=== PATIENT | male | born 1980 | race Caucasian/White ===

== ENCOUNTER 2019-10-05 16:47 | Inpatient (IN) | payer BC, OTHER ==
[2019-10-05 17:21] LABS: Absolute Lymphocytes (CBC) 2.2 K/uL (0.7-4.9); Basophils % 0.2 % (0-1.3); Lymphocytes % 17.3 % (15.3-44.8); MPV 8.3 fL (7.6-11.3)
[2019-10-05 17:26] LABS: Protime INR 1.03
[2019-10-05 17:42] LABS: ALT/SGPT 58 U/L (12-78); AST/SGOT 32 U/L (15-37); Albumin 3.9 g/dL (3.4-5.0); Alkaline Phosphatase 80 U/L (45-117); BUN Blood Urea Nitrogen 20 mg/dL (7-18); Bicarbonate 23 mmol/L (21-32); Bilirubin Direct < 0.1 mg/dL (0-0.2); Bilirubin Total 0.4 mg/dL (0.2-1.0); Glucose Level 123 mg/dL (74-106); Potassium 3.9 mmol/L (3.5-5.1); Protein, Total 7.6 g/dL (6.4-8.2); Sodium Level 141 mmol/L (136-145)
[2019-10-05] MEDS ORDERED: NA CHLORIDE 0.9% 1,000 ML ONE (17:42)
[2019-10-05 17:53] LABS: Urine Blood NEGATIVE (NEG); Urine Glucose NEGATIVE (NEG); Urine Protein 3+ (NEG); Urine pH 5.5 (5.0-7.0)
[2019-10-05 18:00] LABS: Barbiturates NEGATIVE (NEGATIVE); Benzodiazepines POSITIVE (NEGATIVE); Cocaine NEGATIVE (NEGATIVE); METHAMPHETAM NEGATIVE (NEGATIVE); Methadone NEGATIVE (NEGATIVE); Opiates NEGATIVE (NEGATIVE); Phencyclidine NEGATIVE (NEGATIVE); THC Cannibis NEGATIVE (NEGATIVE)
--- NOTE | 2019-10-05 18:28 | ER ---
Nurse's Notes [facility] Name: Jose Luis Alvarenga Age: 39 yrs Sex: Male : 1980 Arrival Date: 10/05/2019 Time: 16:50 Bed 3 Private MD: Diagnosis: Suicide attempt;Intentional overdose;Altered mental status, unspecified Presentation: 10/05 16:50 Presenting complaint: EMS states: Found by PD in car on side of road, slumped over steering wheel, covered in vomit, urine, and feces, prescription pill bottles in front seat: Seroquel 100 mg (disp 60), Zoloft 100 mg (disp 60),, Propanolol ER 120 (disp 30), venlafaxine ER 75 mg (disp 30). Prescriptions filled on 09/12/19. Narcan 0.5 mg administered to 20g LAC. Transition of care: patient was not received from another setting of care. Onset of symptoms was October 05, 2019. Risk Assessment: Do you want to hurt yourself or someone else? Patient reports desire/thoughts of hurting themselves or someone else. Provider notified. Care prior to arrival: IV initiated. 20 GA, in the left antecubital area. 16:50 Method Of Arrival: EMS: [facility] 16:50 Acuity: GILDA 1 hb 17:00 Initial Sepsis Screen: Does the patient meet any 2 criteria? No. Patient's initial em sepsis screen is negative. Does the patient have a suspected source of infection? No. Patient's initial sepsis screen is negative. Historical: - Allergies: 17:00 Neosporin ([id number]); hb - Home Meds: 18:26 propranolol 120 mg Oral Cs24 1 cap once daily [Active]; venlafaxine 75 mg oral tab 1 em tab [Active]; sertraline 100 mg oral tab 1 tab once daily [Active]; quetiapine 100 mg oral tab 2 tabs [Active]; - PMHx: 18:26 Broken Neck; Depression; Anxiety; em - Immunization history:: Adult Immunizations unknown. - Social history:: Smoking status: unknown. - Ebola Screening: : Unable to complete screening because. Screenin:00 Abuse screen: unable to obtain. Nutritional screening: No deficits noted. Tuberculosis em screening: No symptoms or risk factors identified. Fall Risk None identified. Assessment: 17:00 General: Appears in no apparent distress. comfortable, Behavior is drowsy, Smells of em feces and urine . Reports reports he "wanted to end my life" when he took the pills. Pain: Denies pain. Neuro: Cardiovascular: Capillary refill < 3 seconds Patient's skin is warm and dry. Rhythm is sinus rhythm. Respiratory: Airway is patent Respiratory effort is even, unlabored, Respiratory pattern is regular, symmetrical. GI: Abdomen is flat, Last BM was October 05, 2019. vomit noted on patient and pt soiled, cleaned up, applied new gown and applied new brief. Derm: Skin is intact, is healthy with good turgor, Skin is pink, warm \\T\\ dry. Musculoskeletal: Capillary refill < 3 seconds, Range of motion: intact in all extremities. 17:10 Reassessment: Pina \\Cruz\\ Poison Control - [place] recommends: monitor for hypotension, hb bradycardia, serotonin syndrome, tox workup, EKG, need for intubation high, ICU admit. Symptom management with atropine, vasopressors, glucagon. Call for power bender operator consult if high dose insulin therapy needed. Case #[id number]. 17:55 Reassessment: Patient appears in no apparent distress at this time. at bedside, em states they got into an argument today because he was going to work in [place] and has 3 young boys, was admitted to [facility] for treatment in April 2019, pt belongings (soiled jeans, shirt, socks, shoes) given to , pt had $172 in jeans, given to . 18:26 Reassessment: Hospitalist at bedside discussing POC. em 19:10 Reassessment: Patient appears in no apparent distress at this time. Patient and/or jb4 family updated on plan of care and expected duration. Pain level reassessed. Patient is alert, oriented x 3, equal unlabored respirations, skin warm/dry/pink. 19:28 Reassessment: Senior Contract Specialist to the bedside. jb4 19:37 Reassessment: Warm blanket given for temp of 96.8. jb4 19:42 Reassessment: report called to PARVIN Burnett. jb4 Vital Signs: 16:58 BP 93 / 73; Pulse 71; Resp 12; Temp 97; Pulse Ox 96% on R/A; Weight 81.65 kg; Height 6 hb ft. (182.88 cm); Pain 0/10; 17:48 BP 102 / 83; Pulse 71; Resp 18 S; Pulse Ox 96% on R/A; em 18:15 BP 109 / 82; Pulse 70; Resp 17 S; Pulse Ox 99% on R/A; em 18:30 BP 115 / 88; Pulse 71; Resp 15 S; Pulse Ox 98% on R/A; em 19:30 BP 107 / 81; Pulse 75; Resp 26; Temp 96.8(A); Pulse Ox 98% ; jb4 16:58 Body Mass Index 24.41 (81.65 kg, 182.88 cm) hb ED Course: 16:50 Patient arrived in ED. hb 16:58 Triage completed. hb 16:58 Arm band placed on. hb 16:59 Noah Mason, PARVIN is Primary Nurse. em 17:00 Curtis Islas FNP-C is PHCP. la1 17:00 Denilson Hickman MD is Attending Physician. la1 17:00 Patient has correct armband on for positive identification. Placed in gown. Bed in low em position. Call light in reach. Adult w/ patient. produce department manager on. Pulse ox on. NIBP on. 17:00 Maintain EMS IV. Dressing intact. Good blood return noted. Site clean \\T\\ dry. Gauge \\T\\ em site: 20 G LAC. 17:44 Urine collected: Peace catheter specimen, cloudy, ariadne colored. jb1 17:44 Peace cath inserted, using sterile technique, 16 Fr., by ga, balloon inflated, to jb1 gravity drainage, urine specimen collected. 18:25 Denilson Hickman MD is Hospitalizing Provider. la1 18:25 Aramis Garza DO is Hospitalizing Provider. la1 19:08 Report given to PARVIN Reese. em 19:42 No provider procedures requiring assistance completed. Patient admitted, IV remains in jb4 place. Administered Medications: 17:40 Drug: NS 0.9% 1000 ml Route: IV; Rate: 1000 ml; Site: left antecubital; em 18:51 Follow up: IV Status: Completed infusion; IV Intake: 1000ml em Intake: 18:51 IV: 1000ml; Total: 1000ml. em Outcome: 18:26 Decision to Hospitalize by Provider. la1 19:42 Admitted to ICU accompanied by nurse, via stretcher, room ICU bed 6, on monitor, with jb4 chart, Report called to PARVIN Burnett 19:42 Condition: improved 19:42 Discharge instructions given to patient, family, Instructed on the need for admit, Demonstrated understanding of instructions. 20:05 Patient left the ED. rv Signatures: Jason Tom jb1 Noah Mason, RN RN Curtis Islas, RECORD PRESS TENDER-C RECORD PRESS TENDER-Cla1 Chantal Taylor RN RN Levi Holland RN RN jb4 Hugh Oakley RN RN rv Corrections: (The following items were deleted from the chart) 17:03 16:50 Presenting complaint: EMS states: Found by PD in car on side of road, slumped hb over steering wheel, covered in vomit, urine, and feces, prescription pill bottles in front seat: Seroquel 100 mg (disp 60), Zoloft 100 mg (disp 60), Zoloft, Propanolol ER 120 (disp 30), venlafaxine ER 75 mg (disp 30). Prescriptions filled on 09/12/19. Narcan 0.5 mg administered to 20g LAC. hb 17:04 16:50 Acuity: GILDA 2 hb hb 18:48 17:48 BP 102 / 83; Pulse 71bpm; Resp 18bpm; Pulse Ox 96% RA; em em 19:35 19:30 BP 107 / 81; Pulse 75bpm; Resp 26bpm; Pulse Ox 98%; jb4 jb4
--- NOTE | 2019-10-05 18:28 | EDPHYS ---
Physician Documentation [facility] Name: Jose Luis Alvarenga Age: 39 yrs Sex: Male : 1980 Arrival Date: 10/05/2019 Time: 16:50 Bed 3 Private MD: ED Physician Denilson Hickman HPI: 10/05 17:13 This 39 yrs old Male presents to ER via EMS with complaints of Overdose. la1 17:13 The patient presents to the emergency department after a known overdose, that was la1 intentional. Context: Time: the patient's OD/poisoning occurred at an unknown time, Extent: severe ingestion, the OD/poisoning occurred at in car, Psychiatric history: the patient has a known psychiatric disorder. Associated signs and symptoms: Pertinent positives: decreased level of consciousness. Severity of symptoms: At their worst the symptoms were severe. EMS was called out for pt slumped over the wheel, pt found to be covered in urine, feces, vomit. Is responsive to voice, very drowsy, given narcan by EMS with no effect. Found to have 4 empty pill bottles and one almost empty pill bottle that were filled at the end of August, drugs were propranolol ER, Venlafaxine, Sertraline, and Quitiapine. Almost empty bottle is nateglinide. . Historical: - Allergies: 17:00 Neosporin ([id number]); hb - Home Meds: 18:26 propranolol 120 mg Oral Cs24 1 cap once daily [Active]; venlafaxine 75 mg oral tab 1 em tab [Active]; sertraline 100 mg oral tab 1 tab once daily [Active]; quetiapine 100 mg oral tab 2 tabs [Active]; - PMHx: 18:26 Broken Neck; Depression; Anxiety; em - Immunization history:: Adult Immunizations unknown. - Social history:: Smoking status: unknown. - Ebola Screening: : Unable to complete screening because. ROS: 17:18 Unable to obtain ROS due to altered mental status. la1 18:26 Constitutional: Negative for fever, chills, and weight loss, Eyes: Negative for injury, la1 pain, redness, and discharge, ENT: Negative for injury, pain, and discharge, Neck: Negative for injury, pain, and swelling, Cardiovascular: Negative for chest pain, palpitations, and edema, Respiratory: Negative for shortness of breath, cough, wheezing, and pleuritic chest pain, Abdomen/GI: Negative for abdominal pain, nausea, vomiting, diarrhea, and constipation, Back: Negative for injury and pain, MS/Extremity: Negative for injury and deformity, Skin: Negative for injury, rash, and discoloration. 18:26 Neuro: Negative for headache, numbness, seizure activity. 18:26 Psych: Positive for anxiety, depression, suicide gesture, suicidal ideation, Negative for drug dependence, alcohol dependence, auditory hallucinations, visual hallucinations, homicidal ideation. Exam: 17:18 Constitutional: This is a well developed pt, covered in vomit, feces, and urine. la1 Head/Face: Normocephalic, atraumatic. Eyes: Pupils equal round and reactive to light ENT: Mucous membranes moist. Neck: Trachea midline Chest/axilla: Normal chest wall appearance and motion. Nontender with no deformity. No lesions are appreciated. Cardiovascular: Regular rate and rhythm with a normal S1 and S2. No gallops, murmurs, or rubs. Normal PMI, no JVD. No pulse deficits. Respiratory: Lungs have equal breath sounds bilaterally, clear to auscultation . Abdomen/GI: Soft, non-tender, with normal bowel sounds. Back: No spinal tenderness. No costovertebral tenderness. Full range of motion. Male : Normal genitalia with no discharge or lesions. Skin: Warm, dry with normal turgor. Normal color with no rashes, no lesions, and no evidence of cellulitis. 17:18 Neuro: Orientation: to person, place \T\ time. speech is slurred, pt responsive to voice at this time, Mentation: able to follow commands, slow to respond, sleepy, Motor: strength is 5/5 in all extremities, Sensation: is normal. Vital Signs: 16:58 BP 93 / 73; Pulse 71; Resp 12; Temp 97; Pulse Ox 96% on R/A; Weight 81.65 kg; Height 6 hb ft. (182.88 cm); Pain 0/10; 17:48 BP 102 / 83; Pulse 71; Resp 18 S; Pulse Ox 96% on R/A; em 18:15 BP 109 / 82; Pulse 70; Resp 17 S; Pulse Ox 99% on R/A; em 18:30 BP 115 / 88; Pulse 71; Resp 15 S; Pulse Ox 98% on R/A; em 19:30 BP 107 / 81; Pulse 75; Resp 26; Temp 96.8(A); Pulse Ox 98% ; jb4 16:58 Body Mass Index 24.41 (81.65 kg, 182.88 cm) hb MDM: 17:00 Patient medically screened. la1 17:17 ED course: Case was called to poison control, see nursing staff documentation for doses la1 of meds and recommendations. . 18:24 Data reviewed: vital signs, nurses notes, lab test result(s), EKG, I have discussed the la1 patient's presentation/case with the attending Emergency Department Physician; and as a result, I will admit patient. Data interpreted: Pulse oximetry: on room air is 96 %. Interpretation: normal. Test interpretation: by ED physician or midlevel provider: ECG. Counseling: I had a detailed discussion with the patient and/or guardian regarding: the historical points, exam findings, and any diagnostic results supporting the discharge/admit diagnosis, lab results, the need for further work-up and treatment in the hospital. Physician consultation: Aramis Garza DO was called at 18:24, was contacted at 18:24, regarding admission, and will see patient in ED, immediately. ED course: PT awake, eyes open, follows commands, responds to questions appropriately,has not had any bradycardia, hypotension, or seizures since he has been in the ED. Will admit to ICU for close observation. . 10/05 17:00 Order name: Acetaminophen; Complete Time: 18:03 10/05 17:00 Order name: Basic Metabolic Panel; Complete Time: 18:03 10/05 17:00 Order name: CBC with Diff; Complete Time: 18:03 10/05 17:00 Order name: ETOH Level; Complete Time: 18:03 10/05 17:00 Order name: Hepatic Function; Complete Time: 18:03 10/05 17:00 Order name: PT-INR; Complete Time: 18:03 10/05 17:00 Order name: Ptt, Activated; Complete Time: 18:03 10/05 17:00 Order name: Salicylate; Complete Time: 18:03 10/05 17:00 Order name: Urine Drug Screen; Complete Time: 18:03 10/05 17:00 Order name: EKG; Complete Time: 17:01 em 10/05 17:00 Order name: EKG - Nurse/Tech; Complete Time: 17:00 em 10/05 17:23 Order name: Glucose, Ancillary Testing; Complete Time: 18:03 EDMS 10/05 17:44 Order name: Urine Dipstick--Ancillary (enter results); Complete Time: 18:03 eb 10/05 17:00 Order name: IV Saline Lock; Complete Time: 17:00 em 10/05 17:00 Order name: Labs collected and sent; Complete Time: 17:00 em 10/05 17:00 Order name: Urine Dipstick-Ancillary (obtain specimen); Complete Time: 17:44 em 10/05 17:12 Order name: Blood Glucose Level; Complete Time: 17:14 la1 10/05 17:12 Order name: Cardiac monitoring; Complete Time: 17:14 la1 Administered Medications: 17:40 Drug: NS 0.9% 1000 ml Route: IV; Rate: 1000 ml; Site: left antecubital; em 18:51 Follow up: IV Status: Completed infusion; IV Intake: 1000ml em Disposition: 10/06 15:49 Co-signature as Attending Physician, Denilson Hickman MD. ma2 Disposition: 10/05/19 18:26 Hospitalization ordered by Aramis Garza for Inpatient Admission. Preliminary diagnosis are Suicide attempt, Intentional overdose, Altered mental status, unspecified. - Bed requested for Intensive Care Unit. - Status is Inpatient Admission. rv - Condition is Stable. - Problem is new. - Symptoms are unchanged. UTI on Admission? No Signatures: Dispatcher [employer] [facility] Noah Mason, RN RN em Curtis Islas, DATAPOWER DEVELOPER-C DATAPOWER DEVELOPER-Cla1 Chantal Taylor RN RN Denilson Hickman MD MD ma2 Iliana Louise Ronaldo RN RN rv Corrections: (The following items were deleted from the chart) 10/05 18:43 18:26 Hospitalization Ordered by Aramis Garza DO for Inpatient Admission. Preliminary eb diagnosis is Suicide attempt; Intentional overdose; Altered mental status, unspecified. Bed requested for Intensive Care Unit. Status is Inpatient Admission. Condition is Stable. Problem is new. Symptoms are unchanged. UTI on Admission? No. la1 20:05 18:43 10/05/2019 18:26 Hospitalization Ordered by Aramis Garza DO for Inpatient rv Admission. Preliminary diagnosis is Suicide attempt; Intentional overdose; Altered mental status, unspecified. Bed requested for Intensive Care Unit. Status is Inpatient Admission. Condition is Stable. Problem is new. Symptoms are unchanged. UTI on Admission? No. eb
--- NOTE | 2019-10-05 19:47 | P.HP ---
Certification for Inpatient Patient admitted to: Inpatient With expected LOS: >2 Midnights Patient will require the following post-hospital care: Other (Inpatient PSYC) Practitioner: I am a practitioner with admitting privileges, knowledge of patient current condition, hospital course, and medical plan of care. Services: Services provided to patient in accordance with Admission requirements found in Title 42 Section 412.3 of the Code of Federal Regulations Patient History Date of Service: 10/05/19 Primary Care Provider: Unknown; PSYC-Dr. Dickson Reason for admission: Suicide attempt with drug overdose History of Present Illness: 39 yo CM presented to the ER after he was found by police slumped at the wheel of his car. He was found slumped over with urine, vomit and feces on himself. Several empty bottles of meds including Effexor, Seroquel, Propanolol and Setraline was found in the car. He was brought into the ER for further evaluation. He was responding to commands. He has a history of suicide attempt in the past. He has been going through a difficult time in his life. In the ER his significant other was present. She mentioned that he has tried to do this in the past. He was required inpatient PSYC in the past. He is seen by PSYC locally. Lab reviewed. Poison control was called. He was given IV fluids. No need for intervention was done as he was responding to commands. He understands that what he did was wrong. He is willing to get help and to go to inpatient PSYC. He was admitted for further evaluation. Allergies Neosporin ( Allergy (Uncoded 04/02/17 23:20) Unknown Home medications list reviewed: Yes - Past Medical/Surgical History Diabetic: No -: Depression with anxiety -: Hx of suicide attempt Past Surgical History: Patient denies surgical history Psychosocial/ Personal History: Lives at home. He has a significant other - Family History Family History: Reviewed- Non-Contributory - Social History Smoking Status: Never smoker Alcohol use: No CD- Drugs: No Caffeine use: No Place of Residence: Home Review of Systems General: As per HPI Eyes: Unremarkable ENT: Unremarkable Respiratory: Unremarkable Cardiovascular: Unremarkable Gastrointestinal: Nausea, Vomiting, As per HPI Genitourinary: Unremarkable Musculoskeletal: Unremarkable Integumentary: Unremarkable Neurological: As per HPI Lymphatics: Unremarkable Physical Examination - Physical Exam General: Alert, In no apparent distress, Cooperative, Other (Patient appears disheveled. He is responding appropriate but is tired. ) HEENT: Atraumatic, Normocephalic Neck: Supple Respiratory: Clear to auscultation bilaterally Cardiovascular: Normal pulses, Regular rate/rhythm Gastrointestinal: Normal bowel sounds, Soft and benign, Non-distended, No tenderness, No masses, No rebound, No guarding Musculoskeletal: No contractures, No erythema, No tenderness, No warmth Integumentary: No tenderness/swelling, No erythema, No warmth, No cyanosis Neurological: Normal speech, Normal strength at 5/5 x4 extr, Normal tone, Abnormal affect (depressed) - Studies Laboratory Data (last 24 hrs) 10/05/19 17:10: PT 12.1, INR 1.03, APTT 28.6 10/05/19 17:10: WBC 12.9 H, Hgb 15.7, Hct 47.0, Plt Count 188 10/05/19 17:10: Sodium 141, Potassium 3.9, BUN 20 H, Creatinine 1.38 H, Glucose 123 H, Total Bilirubin 0.4, AST 32, ALT 58, Alkaline Phosphatase 80 Assessment and Plan - Plan Impression: Suicide attempt with intentional multiple drug overdose including possible- Propanolol, Effexor, Seroquel, Sertraline with history of severe depression/ anxiety, prior suicide attempt, and life stressors Acute renal injury likely dehydration Plan: Patient will be admitted to ICU for IV fluids and monitoring. Will monitor telemetry. He is willing to get help and to go to inpatient PSYC. Will update Poison control and further continue with recommendations. Will place on suicide one on one care. Once medically stable will consult PSYC for inpatient PSYC transfer for further evaluation and treatment of his condition. Will monitor lab. Electrolyte protocol in place. Discharge Plan: Psychiatry Plan to discharge in: 48 Hours - Advance Directives Does patient have a Living Will: No Does patient have a Durable POA for Healthcare: No - Code Status/Comfort Care Code Status Assessed: No (will address advance directive tomorrow. ) Time Spent Managing Pts Care (In Minutes): 55
[2019-10-05] MEDS ORDERED: ONDANSETRON 4 MG/2 ML VIAL IV PRN (20:23)
[2019-10-05] MEDS ORDERED: ACETAMINOPHEN 500 MG TAB PO PRN (20:23)
[2019-10-05] MEDS: NA CHLORIDE 0.9% 1,000 ML IV SCH (21:00)
[2019-10-05 22:59] VITALS: O2SAT 96
[2019-10-06 05:09] VITALS: BMI 27.1
[2019-10-06 05:14] LABS: Absolute Lymphocytes (CBC) 3.2 K/uL (0.7-4.9); Basophils % 0.3 % (0-1.3); Hematocrit 43.7 % (39.6-49.0); Lymphocytes % 25.5 % (15.3-44.8); MPV 8.2 fL (7.6-11.3); RBC Red Blood Cell Count 4.84 M/uL (4.33-5.43)
[2019-10-06 05:24] LABS: Magnesium 2.3 mg/dL (1.8-2.4); Potassium 3.7 mmol/L (3.5-5.1)
[2019-10-06] MEDS: NA CHLORIDE 0.9% 1,000 ML IV SCH (06:23)
[2019-10-06] MEDS ORDERED: ENOXAPARIN 40 MG/0.4 ML SQ SCH (09:00)
[2019-10-06] MEDS ORDERED: POTASSIUM CL SA 10 MEQ TAB PO ONE (09:00)
--- NOTE | 2019-10-06 10:28 | EKG ---
Test Date: 2019-10-05 Test Time: 16:55:01 Gill Tender: RAJINDER MEASUREMENT RESULTS: Intervals: Rate: 71 IA: 198 QRSD: 106 QT: 428 QTc: 465 [place]: P: 35 IA: 198 QRS: 82 T: 65 INTERPRETIVE STATEMENTS: Normal sinus rhythm Normal ECG No previous ECG available for comparison Electronically Signed On 10-06-19 10:27:13 GEAR AND SPLINE GRINDER by Josh Baker
--- NOTE | 2019-10-06 10:46 | P.DS ---
Admission Date: 10/05/19 Discharge Date: 10/06/19 Primary Care Provider: Dean March; [facility]. Dickson Disposition: TRANSFR TO OTHER-PSY/CD/REHAB Discharge Condition: GOOD Reason for Admission: Suicide attempt with drug overdose Consultations: none Procedures: Medical Problem list: Suicide attempt with intentional multiple drug overdose including possible- Propanolol, Effexor, Seroquel, Sertraline with history of severe depression/ anxiety, prior suicide attempt, and life stressors Acute renal injury likely dehydration Brief History of Present Illness: 39 yo CM presented to the ER after he was found by police slumped at the wheel of his car. He was found slumped over with urine, vomit and feces on himself. Several empty bottles of meds including Effexor, Seroquel, Propanolol and Setraline was found in the car. He was brought into the ER for further evaluation. He was responding to commands. He has a history of suicide attempt in the past. He has been going through a difficult time in his life. In the ER his significant other was present. She mentioned that he has tried to do this in the past. He was required inpatient [facility] in the past. He is seen by [facility] locally. Lab reviewed. Poison control was called. He was given IV fluids. No need for intervention was done as he was responding to commands. He understands that what he did was wrong. He is willing to get help and to go to inpatient [facility]. He was admitted for further evaluation. Hospital Course: Patient presented with suicide attempt with intentional multiple drug overdose. Patient took an unknown amount of propanolol, Effexor, Seroquel and sertraline. He was found by police slumped over with vomitus, urine and feces. Patient was evaluated the emergency room. Patient was stable and appropriate. Patient was admitted Overnite to closely monitor. Patient had acute renal injury likely from dehydration. Patient was given IV fluids. During the course of her stay patient did well. BMP improved. No significant EKG changes noted. After further discussion with patient, he agreed to go to inpatient psych to further evaluate his condition. He has been to inpatient psych before. Case discussed at length with inpatient psychiatry was agreed to accept the patient. Patient medically stable for transfer to inpatient psych. Patient will be admitted to psych today to further address. Vital Signs/Physical Exam: Temp Pulse Resp BP Pulse Ox 97.3 F 67 17 106/80 96 10/06/19 04:00 10/06/19 09:00 10/06/19 09:00 10/06/19 09:00 10/06/19 05:00 General: Alert, In no apparent distress, Oriented x3, Cooperative HEENT: Atraumatic Neck: Supple Respiratory: Clear to auscultation bilaterally, Normal air movement Cardiovascular: Normal pulses, Regular rate/rhythm Gastrointestinal: Normal bowel sounds, Soft and benign, Non-distended, No tenderness, No masses, No rebound, No guarding Musculoskeletal: No erythema, No tenderness, No warmth Integumentary: No tenderness/swelling, No erythema, No warmth, No cyanosis Neurological: Normal speech, Normal strength at 5/5 x4 extr, Normal tone, Normal affect Laboratory Data at Discharge: WBC 12.7 K/uL (4.3-10.9) H 10/06/19 04:57 Hgb 14.6 g/dL (13.6-17.9) 10/06/19 04:57 Hct 43.7 % (39.6-49.0) 10/06/19 04:57 Plt Count 153 K/uL (152-406) 10/06/19 04:57 PT 12.1 SECONDS (9.5-12.5) 10/05/19 17:10 INR 1.03 10/05/19 17:10 APTT 28.6 SECONDS (24.3-36.9) 10/05/19 17:10 Sodium 142 mmol/L (136-145) 10/06/19 04:57 Potassium 3.7 mmol/L (3.5-5.1) 10/06/19 04:57 BUN 17 mg/dL (7-18) 10/06/19 04:57 Creatinine 0.96 mg/dL (0.55-1.3) 10/06/19 04:57 Glucose 94 mg/dL (74-106) 10/06/19 04:57 Magnesium 2.3 mg/dL (1.8-2.4) 10/06/19 04:57 Total Bilirubin 0.4 mg/dL (0.2-1.0) 10/05/19 17:10 AST 32 U/L (15-37) 10/05/19 17:10 ALT 58 U/L (12-78) 10/05/19 17:10 Alkaline Phosphatase 80 U/L (45-117) 10/05/19 17:10 Home Medications: Propranolol HCl [Propranolol HCl ER] 120 mg PO DAILY 10/05/19 Quetiapine [Seroquel] 2 tab PO DAILY 10/05/19 Sertraline [Zoloft] 100 mg PO DAILY 10/05/19 Venlafaxine HCl [Venlafaxine HCl ER] 75 mg PO DAILY 10/05/19 Patient Discharge Instructions: Patient will be transferred to inpatient psych to further addressed and treat his underlying depression/anxiety with history of suicidal ideation and intentional overdose. Diet: Regular Activity: Ad brianna Time spent managing pt's care (in minutes): 55
[2019-10-06 11:21] VITALS: BP 105/74
[2019-10-06 12:05] VITALS: TEMP 97.7
== END 2019-10-06 11:50 | DRG 918 ==
LOC: ER 16:47 → ERHOLD 18:32 → 3RD-ICU 19:42
PROVIDERS: ADMIT Family Medicine; ATTEND Family Medicine
DX: T42.6X2A Poisoning by other antiepileptic and sedative-hypnotic drugs, intentional self-harm, initial encounter (principal); N17.9 Acute kidney failure, unspecified; T43.212A Poisoning by selective serotonin and norepinephrine reuptake inhibitors, intentional self-harm, initial encounter; T43.592A Poisoning by other antipsychotics and neuroleptics, intentional self-harm, initial encounter; T43.222A Poisoning by selective serotonin reuptake inhibitors, intentional self-harm, initial encounter; R40.4 Transient alteration of awareness; Y92.810 Car as the place of occurrence of the external cause; F41.8 Other specified anxiety disorders; E86.0 Dehydration
CPT/HCPCS: 36415; 51702; 80048; 80076; 80307; 80320; 80329; 81003; 82947; 83735; 85025; 85610; 85730; 93005; 96360; 99291; 99292; J1650; J7030

== ENCOUNTER 2024-07-05 13:09 | Emergency (ER) | payer BC, OTHER ==
--- OUTSIDE RECORDS SUMMARY | 2024-07-05 13:15 | XMS REPORT | Continuity of Care Document ---
Author Name Unknown Address [address] [facility] [address] [place] [address] [facility] Address [address] [facility] 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 Name Role Phone PCP, NO Primary Care Physician Unavailab ROBERT Padilla Attending Clinician Unavailable Tasia Hong MD Attending Clinician [phone] Doctor Unassigned, [place] Attending Clinician U navailable TASIA HONG Attending Clinician UnavailTASIA Avila Attending Clinician UnavailRobert Roberts Attending Clinician [phone] NANY ECHAVARRIA Attending Clinician Unavailable Nany Echavarria MD Attending Clinician [phone] MAYNOR ROWE Attending Clinician Unavailable JENNIFER MACHADO Attending Clinician Unavailable Jennifer Davis S Attending Clinician [phone] UNKNOWN, ATTENDING Attending Clinician Unavailab MARTIN Garcia Attending Clinician Unavailable Elizabeth Lucas RN Attending Clinician Unavailrenuka todd Only, Ang Db Test Attending Clinician UnavailRosette Franco Attending Clinician [phone] ROSETTE MARES Attending Clinician UnavailNANY Saba Admitting Clinician Unavailable Payers Payer Name Policy Type Policy Number Effective Date Expirati on Date Source Problems Condition Name Condition Details Condition Category Status Onset Date Resolution Date Last Treatment Date Treating Clinician Comments Source No known active problems No known active problems Disease [facility] Allergies, Adverse Reactions, Alerts Allergy Name Allergy Type Status Severity Reaction(s) Onset Date Inactive Date Treating Clinician Comments Source Neospori n (Neomyci n-Polymy x) Propensi ty to adverse reaction s Active Rash 06-11 00:00: 00 [facility] NEOSPORI N (NEOMYCI N-POLYMY X) DRUG Active Rash 06-11 00:00: 00 [facility] Neospori n Propensi ty to adverse reaction to drug Active 11-06 00:00: 00 NO KNOWN ALLERGIE S Drug Class Active [facility] Social History Social Habit Start Date Stop Date Quantity Comments Source History of tobacco use Smokes tobacco daily [facility] of Social function 2023-06-11 00:00:00 2023-06-11 00:00:00 [facility] Exposure to SARS-CoV-2 (event) 2022 00:00:00 2022-10-03 08:20:00 Not sure [facility] Sex Assigned At 1980 00:00:00 1980 00:00:00 [facility] Smoking Status Start Date Stop Date Source Smokes tobacco daily 2023-06-11 00:00:00 [facility] Medications Ordered Medication Name Filled Medication Name Start Date Stop Date Current Medication? Ordering Clinician Indication Dosage Frequency Signature (SIG) Comments Components Source methylPREDN ISolone (MEDROL, RADHA,) 4 mg tablets 06-15 00:00: 00 Yes [id number] 84mg Take 21 tablets by mouth SEE-INSTRU CTIONS. follow package directions [facility] ARIPiprazol e (ABILIFY) 5 mg tablet 06-11 11:24: 14 Yes 5mg Take 1 tablet by mouth in the morning. [facility] FLUoxetine 40 mg capsule 06-11 11:24: 14 Yes 40mg Take 1 capsule by mouth in the morning. [facility] clotrimazol e-betametha sone cream 06-11 00:00: 00 Yes [id number] Apply to area(s) 2 (two) times daily. [facility] HYDROcodone -acetaminop hen (NORCO) 10-325 mg tablet 1 tablet 06-10 18:15: 00 06-10 17:21 :00 No 1{tbl} 1 tablet, Oral, ONCE, 1 dose, On Sun06/10/23 at 1315, KAMARI [facility] methylPREDN ISolone 4 mg tablets 06-10 00:00: 00 Yes [id number] Take by mouth SEE-INSTRU CTIONS. follow package directions [facility] HYDROcodone -acetaminop hen (NORCO) 7.5-325 mg per tablet 06-10 00:00: 00 06-18 04:59 :00 No [id number] 1{tbl} Take 1 tablet by mouth every 6 (six) hours as needed for Pain for up to 7 days. Indication s: acute pain [facility] diazePAM (VALIUM) injection 5 mg 10-03 15:00: 00 10-03 14:58 :00 No 5mg 5 mg, Slow IV Push, ONCE, 1 dose, On Sun10/03/22 at 0900, STAT [facility] meclizine 25 mg tablet 10-03 00:00: 00 Yes [id number] 25mg Take 1 tablet by mouth 4 (four) times daily as needed for Dizziness. [facility] TAKE 1 CAPSULE BY MOUTH ONCE DAILY 09-18 00:00: 00 No TAKE 1 CAPSULE BY MOUTH EVERY DAY 2021-09 00:00: 00 No TAKE 1 CAPSULE DAILY BY MOUTH 04-24 00:00: 00 No 40 Dose Unknown 04-21 00:00: 00 No Prozac 40 mg capsule 04-21 00:00: 00 No 1mg Dose Unknown 04-21 00:00: 00 No TAKE 1 CAPSULE DAILY BY MOUTH 04-21 00:00: 00 No 40 Dose Unknown 04-19 00:00: 00 No Dose Unknown 2022-0 6-24 00:00: 00 No Prozac 40 mg capsule 2021-0 6-24 00:00: 00 No 1mg Abilify 5 mg tablet 2021-0 5-19 00:00: 00 No 1mg Prozac 20 mg capsule 0 5-19 00:00: 00 No 2mg Abilify 5 mg tablet 2021-0 3-10 00:00: 00 No 1mg fluoxetine 10 mg capsule 2021-0 3-10 00:00: 00 No 1mg Dose Unknown 0 3-04 00:00: 00 No fluoxetine 10 mg capsule 2021-0 3-04 00:00: 00 No 3mg Dose Unknown 1 2-17 00:00: 00 No Dose Unknown 1 2-17 00:00: 00 No aripiprazol e 10 mg tablet 2020-1 0-19 00:00: 00 No 1mg fluoxetine 10 mg capsule 2020-1 0-19 00:00: 00 No 3mg aripiprazol e 10 mg tablet 2020-0 9-14 00:00: 00 No 1mg fluoxetine 10 mg capsule 2020-0 9-14 00:00: 00 No 3mg aripiprazol e 10 mg tablet 2020-0 8-27 00:00: 00 No 1mg fluoxetine 10 mg capsule 2020-0 8-27 00:00: 00 No 3mg aripiprazol e 10 mg tablet 2020-0 8-19 00:00: 00 No 1mg fluoxetine 10 mg capsule 2020-0 8-19 00:00: 00 No 3mg aripiprazol e 10 mg tablet 2020-0 7-15 00:00: 00 No 1mg fluoxetine 10 mg capsule 2020-0 7-15 00:00: 00 No 3mg aripiprazol e 10 mg tablet 2020-0 7-09 00:00: 00 No 1mg aripiprazol e 10 mg tablet 2020-0 5-20 00:00: 00 No 1mg fluoxetine 10 mg capsule 2020-0 5-20 00:00: 00 No 3mg aripiprazol e 10 mg tablet 2020-0 4-15 00:00: 00 No 1mg fluoxetine 10 mg capsule 2020-0 4-15 00:00: 00 No 3mg aripiprazol e 10 mg tablet 0 12-07 00:00: 00 No 1mg fluoxetine 10 mg capsule 0 12-07 00:00: 00 No 3mg aripiprazol e 10 mg tablet 0 11-08 00:00: 00 No 1mg fluoxetine 10 mg capsule 0 11-08 00:00: 00 No 3mg fluoxetine 10 mg capsule 0 - 00:00: 00 No 3mg aripiprazol e 10 mg tablet 10-12 00:00: 00 No 1mg aripiprazol e 10 mg tablet 2019-09 00:00: 00 No 1mg fluoxetine 10 mg capsule 2019-09 00:00: 00 No 3mg melatonin 10 mg capsule 2019-09 00:00: 00 No 1mg aripiprazol e 10 mg tablet 2019-09 00:00: 00 No 1mg fluoxetine 10 mg capsule 2019-09 00:00: 00 No 3mg melatonin 10 mg capsule 2019-09 00:00: 00 No 1mg aripiprazol e 10 mg tablet 2019-09 00:00: 00 No 1mg fluoxetine 10 mg capsule 2019-09 00:00: 00 No 3mg melatonin 10 mg capsule 2019-09 00:00: 00 No 1mg aripiprazol e 10 mg tablet 06-15 00:00: 00 No 1mg fluoxetine 10 mg capsule 06-15 00:00: 00 No 3mg melatonin 10 mg capsule 06-15 00:00: 00 No 1mg aripiprazol e 10 mg tablet 05-18 00:00: 00 No 1mg mirtazapine 15 mg tablet 05-18 00:00: 00 No 1mg fluoxetine 10 mg capsule 05-18 00:00: 00 No 3mg melatonin 10 mg capsule 05-18 00:00: 00 No 1mg aripiprazol e 10 mg tablet 04-20 00:00: 00 No 1mg mirtazapine 15 mg tablet 04-20 00:00: 00 No 1mg fluoxetine 10 mg capsule 2020-0 8-04 00:00: 00 No 3mg melatonin 10 mg capsule 2019-0 8-04 00:00: 00 No 1mg Lipitor 20 mg tablet 2019-0 7-10 00:00: 00 No 1mg aripiprazol e 10 mg tablet 2019-0 6-18 00:00: 00 No 1mg mirtazapine 15 mg tablet 2019-0 6-18 00:00: 00 No 1mg fluoxetine 10 mg capsule 2019-0 6-18 00:00: 00 No 3mg melatonin 10 mg capsule 2019-0 -18 00:00: 00 No 1mg aripiprazol e 10 mg tablet 2019-0 5-19 00:00: 00 No 1mg mirtazapine 15 mg tablet 2019-0 5-19 00:00: 00 No 1mg fluoxetine 20 mg capsule 2019-0 5-19 00:00: 00 No 1mg melatonin 10 mg capsule 2019-0 5-19 00:00: 00 No 1mg aripiprazol e 10 mg tablet 2019-0 4-21 00:00: 00 No 1mg mirtazapine 15 mg tablet 2019-0 4-21 00:00: 00 No 1mg fluoxetine 20 mg capsule 2019-0 4-21 00:00: 00 No 1mg melatonin 10 mg capsule 2019-0 4-21 00:00: 00 No 1mg aripiprazol e 10 mg tablet 2019-0 3-18 00:00: 00 No 1mg mirtazapine 15 mg tablet 2019-0 3-18 00:00: 00 No 1mg fluoxetine 20 mg capsule 2019-0 3-18 00:00: 00 No 1mg melatonin 10 mg capsule 2019-0 3-18 00:00: 00 No 1mg Lipitor 20 mg tablet 2019-0 3-05 00:00: 00 No 1mg mirtazapine 15 mg tablet 2019-0 2-20 00:00: 00 No 1mg aripiprazol e 10 mg tablet 2019-0 2-20 00:00: 00 No 1mg fluoxetine 20 mg capsule 2019-0 2-20 00:00: 00 No 1mg melatonin 10 mg capsule 2019-0 2-20 00:00: 00 No 1mg Zoloft 100 mg tablet 2019-0 1-09 00:00: 00 No 2mg Seroquel 100 mg tablet 2019-0 1-09 00:00: 00 No 2mg Effexor XR 75 mg capsule,ext ended release 09-25 00:00: 00 No 1mg Inderal LA 120 mg capsule,ext ended release 09-25 00:00: 00 No 1mg Zoloft 100 mg tablet 2018-09 00:00: 00 No 2mg Seroquel 100 mg tablet 2018-09 00:00: 00 No 2mg Effexor XR 75 mg capsule,ext ended release 2018-09 00:00: 00 No 1mg Inderal LA 120 mg capsule,ext ended release 2018-09 00:00: 00 No 1mg Zoloft 100 mg tablet 2018-09 00:00: 00 No 2mg Seroquel 100 mg tablet 2018-09 00:00: 00 No 2mg Inderal LA 80 mg capsule,ext ended release 2018-09 00:00: 00 No 1mg Zoloft 100 mg tablet 2018-09 0 00:00: 00 No 2mg Seroquel 100 mg tablet 2018-09 0 00:00: 00 No 12mg Inderal LA 80 mg capsule,ext ended release 2018-09 0 00:00: 00 No 1mg Inderal LA 80 mg capsule,ext ended release 2018-09 003 00:00: 00 No 1mg Zoloft 100 mg tablet 06-10 00:00: 00 No 2mg Seroquel 100 mg tablet 06-10 00:00: 00 No 1mg Inderal LA 80 mg capsule,ext ended release 06-10 00:00: 00 No 1mg Inderal LA 80 mg capsule,ext ended release 05-15 00:00: 00 No 1mg Zoloft 100 mg tablet 03-27 00:00: 00 No 2mg Seroquel 100 mg tablet 03-27 00:00: 00 No 1mg Zoloft 100 mg tablet 02-20 00:00: 00 No 2mg Seroquel 50 mg tablet 02-20 00:00: 00 No 12mg Zoloft 100 mg tablet 01-16 00:00: 00 No 15mg Seroquel 50 mg tablet 01-16 00:00: 00 No 12mg Zoloft 100 mg tablet 12-19 00:00: 00 No 15mg Seroquel 50 mg tablet 12-19 00:00: 00 No 12mg Zoloft 100 mg tablet 11-06 00:00: 00 No 15mg trazodone 100 mg tablet 11-06 00:00: 00 No 1mg Zoloft 100 mg tablet 2017-09 00:00: 00 No 15mg trazodone 100 mg tablet 2017-09 00:00: 00 No 1mg Zoloft 100 mg tablet 2017-09 00:00: 00 No 15mg trazodone 100 mg tablet 2017-09 00:00: 00 No 1mg Zoloft 100 mg tablet 2017-09 0 00:00: 00 No 1mg trazodone 50 mg tablet 2017-09 0 00:00: 00 No 1mg mupirocin 2 % ointment 02-15 00:00: 00 Yes [id number] Apply to area(s) 3 (three) times daily. [facility] hydrOXYzine 25 mg tablet 02-15 00:00: 00 10-03 00:00 :00 No [id number] 1-2 tabs Every 3-6hr as needed for itch or rash, at least 3 times a day. [facility] trazodone 100 mg tablet 04-25 00:00: 00 No 51mg Prozac 20 mg capsule 04-25 00:00: 00 No 1mg Prozac 20 mg capsule 03-28 00:00: 00 No 1mg Prozac 20 mg capsule 02-28 00:00: 00 No 1mg Wellbutrin XL 150 mg 24 hr tablet, extended release 01-11 00:00: 00 No 12mg Prozac 20 mg capsule 01-11 00:00: 00 No 1mg Prozac 20 mg capsule 12-16 00:00: 00 No 2mg Prozac 20 mg capsule 11-23 00:00: 00 No 1mg Prozac 20 mg capsule 2017-0 2-11 00:00: 00 No 1mg Vital Signs Vital Name Observation Time Observation Value Comments S yecenia Systolic blood pressure 2023-06-15 14:48:00 118 mm[Hg] [facility] Diastolic blood pressure 2023-06-15 14:48:00 84 mm[Hg] [facility] Heart rate 2023-06-15 14:48:00 76 /min [facility] Body height 2023-06-15 14:48:00 182.9 cm [facility] Body weight 2023-06-15 14:48:00 86.864 kg [facility] BMI 2023-06-15 14:48:00 25.97 kg/m2 [facility] Systolic blood pressure 2023-06-11 16:00:00 105 mm[Hg] [facility] Diastolic blood pressure 2023-06-11 16:00:00 74 mm[Hg] [facility] Heart rate 2023-06-11 16:00:00 85 /min [facility] Body temperature 2023-06-11 16:00:00 36.44 Clarisse [facility] Respiratory rate 2023-06-11 16:00:00 20 /min [facility] Body height 2023-06-11 16:00:00 182.9 cm [facility] Body weight 2023-06-11 16:00:00 86.637 kg [facility] BMI 2023-06-11 16:00:00 25.90 kg/m2 [facility] Oxygen saturation in Arterial blood by Pulse oximetry 2023-06-11 16:00:00 96 /min [facility] Systolic blood pressure 2023-06-10 16:49:00 125 mm[Hg] [facility] Diastolic blood pressure 2023-06-10 16:49:00 88 mm[Hg] [facility] Heart rate 2023-06-10 16:49:00 76 /min [facility] Body temperature 2023-06-10 16:49:00 36.83 Clarisse [facility] Respiratory rate 2023-06-10 16:49:00 18 /min [facility] Body weight 2023-06-10 16:49:00 83.915 kg [facility] BMI 2023-06-10 16:49:00 25.09 kg/m2 [facility] Oxygen saturation in Arterial blood by Pulse oximetry 2023-06-10 16:49:00 99 /min [facility] Systolic blood pressure 2022-10-03 16:00:00 114 mm[Hg] [facility] Diastolic blood pressure 2022-10-03 16:00:00 90 mm[Hg] [facility] Heart rate 2022-10-03 16:00:00 74 /min [facility] Respiratory rate 2022-10-03 16:00:00 17 /min [facility] Oxygen saturation in Arterial blood by Pulse oximetry 2022-10-03 16:00:00 96 /min [facility] Body temperature 2022-10-03 14:21:00 37 Clarisse [facility] Body height 2022-10-03 14:21:00 182.9 cm [facility] Body weight 2022-10-03 14:21:00 83.915 kg [facility] BMI 2022-10-03 14:21:00 25.09 kg/m2 [facility] BP Systolic 2021-09-02 13:25:00 118 mm[Hg] BP Diastolic 2021-09-02 13:25:00 76 mm[Hg] Weight Measured 2021-09-02 13:25:00 200.80 pounds Height Measured 2021-09-02 13:25:00 72.00 inches Body Temperature 2021-09-02 13:25:00 98.30 degrees Heart Rate 2021-09-02 13:25:00 86.00 /min Respiratory Rate 2021-09-02 13:25:00 BP Systolic 2021-07-07 13:36:00 126 mm[Hg] BP Diastolic 2021-07-07 13:36:00 76 mm[Hg] Weight Measured 2021-07-07 13:36:00 190.20 pounds Height Measured 2021-07-07 13:36:00 72.00 inches Body Temperature 2021-07-07 13:36:00 98.20 degrees Heart Rate 2021-07-07 13:36:00 80.00 /min Respiratory Rate 2021-07-07 13:36:00 17.00 /min BP Systolic 2021-07-04 08:42:00 100 mm[Hg] BP Diastolic 2021-07-04 08:42:00 63 mm[Hg] Weight Measured 2021-07-04 08:42:00 186.80 pounds Height Measured 2021-07-04 08:42:00 72.00 inches Body Temperature 2021-07-04 08:42:00 98.20 degrees Heart Rate 2021-07-04 08:42:00 70.00 /min Respiratory Rate 2021-07-04 08:42:00 BP Systolic 2021-03-31 12:45:00 BP Diastolic 2021-03-31 12:45:00 Weight Measured 2021-03-31 12:45:00 210.00 pounds Height Measured 2021-03-31 12:45:00 72.00 inches Body Temperature 2021-03-31 12:45:00 Heart Rate 2021-03-31 12:45:00 Respiratory Rate 2021-03-31 12:45:00 BP Systolic 2020-03-26 14:20:00 123 mm[Hg] BP Diastolic 2020-03-26 14:20:00 82 mm[Hg] Weight Measured 2020-03-26 14:20:00 204.20 pounds Height Measured 2020-03-26 14:20:00 72.00 inches Body Temperature 2020-03-26 14:20:00 98.50 degrees Heart Rate 2020-03-26 14:20:00 67.00 /min Respiratory Rate 2020-03-26 14:20:00 18.00 /min BP Systolic 2019-11-06 15:21:00 141 mm[Hg] BP Diastolic 2019-11-06 15:21:00 89 mm[Hg] Weight Measured 2019-11-06 15:21:00 214.40 pounds Height Measured 2019-11-06 15:21:00 999.99 inches Body Temperature 2019-11-06 15:21:00 97.60 degrees Heart Rate 2019-11-06 15:21:00 85.00 /min Respiratory Rate 2019-11-06 15:21:00 16.00 /min BP Systolic 2019-11-06 11:16:00 132 mm[Hg] BP Diastolic 2019-11-06 11:16:00 92 mm[Hg] Weight Measured 2019-11-06 11:16:00 214.40 pounds Height Measured 2019-11-06 11:16:00 72.00 inches Body Temperature 2019-11-06 11:16:00 98.20 degrees Heart Rate 2019-11-06 11:16:00 95.00 /min Respiratory Rate 2019-11-06 11:16:00 16.00 /min BP Systolic 2019-09-25 17:00:00 123 mm[Hg] BP Diastolic 2019-09-25 17:00:00 82 mm[Hg] Weight Measured 2019-09-25 17:00:00 204.00 pounds Height Measured 2019-09-25 17:00:00 72.00 inches Body Temperature 2019-09-25 17:00:00 98.60 degrees Heart Rate 2019-09-25 17:00:00 89.00 /min Respiratory Rate 2019-09-25 17:00:00 16.00 /min BP Systolic 2019-09-04 16:38:00 125 mm[Hg] BP Diastolic 2019-09-04 16:38:00 84 mm[Hg] Weight Measured 2019-09-04 16:38:00 207.00 pounds Height Measured 2019-09-04 16:38:00 72.00 inches Body Temperature 2019-09-04 16:38:00 98.10 degrees Heart Rate 2019-09-04 16:38:00 77.00 /min Respiratory Rate 2019-09-04 16:38:00 18.00 /min BP Systolic 2019-07-31 16:44:00 130 mm[Hg] BP Diastolic 2019-07-31 16:44:00 79 mm[Hg] Weight Measured 2019-07-31 16:44:00 197.00 pounds Height Measured 2019-07-31 16:44:00 72.00 inches Body Temperature 2019-07-31 16:44:00 97.90 degrees Heart Rate 2019-07-31 16:44:00 88.00 /min Respiratory Rate 2019-07-31 16:44:00 Procedures Procedure Date / Time Performed Performing Clinicia n Source ASSIGNMENT OF BENEFITS 2023-06-10 17:19:11 Docto r Unassigned, [place] [facility] CONSENT/REFUSAL FOR DIAGNOSIS AND TREATMENT 2023-06-10 16:36:56 Doctor Unassigned, [place] [facility] COMP. METABOLIC PANEL (26035) 2022-10-03 14:50:00 Jennifer Machado [facility] CBC WITH DIFF 2022-10-03 14:50:00 [facility]AT[facility] 2022-10-03 14:17:31 Doctor Unassigned, [place] [facility] REFERRAL- REQUEST/RESPONSE 2022-09-19 06:01:00 Doctor Unassigned, [place] [facility] Plan of Care Planned Activity Planned Date Details Comments Source Goal Plan of Care Note [code = 60619-2] Goal Plan of Care Note [code = 46526-9] Goal Plan of Care Note [code = 90003-2] Goal Plan of Care Note [code = 69310-6] Goal Plan of Care Note [code = 45992-0] Goal Plan of Care Note [code = 94345-8] Goal Plan of Care Note [code = 78319-1] Goal Plan of Care Note [code = 13084-8] Goal Plan of Care Note [code = 06647-5] Goal Plan of Care Note [code = 75898-4] Goal Plan of Care Note [code = 31326-6] Goal Plan of Care Note [code = 65309-4] Goal Plan of Care Note [code = 28198-1] Goal Plan of Care Note [code = 31150-7] Encounters Start Date/Time End Date/Time Encounter Type Admission Type Attending [facility] Care Facility Care Department Encounter ID Source 2024-03-23 13:07:32 2024-03-23 13:07:32 Outpatient [facility] [id number] Dean Coleman 2024-01-28 09:27:31 2024-01-28 09:27:31 Outpatient [facility] [id number] Dean Coleman 2024-01-03 13:10:09 2024-01-03 13:10:09 Outpatient [facility] [id number] Dean Coleman 2023-11-08 14:12:58 2023-11-08 14:12:58 Outpatient [facility] [id number] Dean Coleman 2023-11-07 08:15:02 2023-11-07 08:15:02 Outpatient [facility] [id number] Dean Coleman 2023-11-06 13:55:21 2023-11-06 13:55:21 Outpatient [facility] [id number] Dean Coleman 2023-10-26 08:15:04 2023-10-26 08:15:04 Outpatient [facility] [id number] Dean Coleman 2023-08-02 13:07:25 2023-08-02 13:07:25 Outpatient [facility] [id number] Dean Coleman 2023-07-05 13:15:12 2023-07-05 13:15:12 Outpatient [facility] [id number] Dean Rayo Jared 2023-06-22 00:00:00 2023-06-22 00:00:00 Telephone PipePastorlucina Logan [facility] 1.840.114 350.1.13.10 4.2.7.2.686 [id number] [facility] 2023-06-22 00:00:00 2023-06-22 00:00:00 Patient Secure Msg Doctor Unassigned, [place] [facility] 1.840.114 350.1.13.10 4.2.7.2.686 [id number] [facility] 2023-06-20 00:00:00 2023-06-20 00:00:00 Telephone Tasia Hong [facility] 1.840.114 350.1.13.10 4.2.7.2.686 [id number] [facility] 2023-06-19 00:00:00 2023-06-19 00:00:00 Telephone Tasia Hong [facility] 1.840.114 350.1.13.10 4.2.7.2.686 [id number] [facility] 2023-06-15 09:45:00 2023-06-15 10:08:18 Outpatient R TASIA HONG CRAIG [facility] [id number] [facility] 2023-06-15 09:45:00 2023-06-15 10:08:18 Office Visit Tasia Hong [facility] 1.2.840.114 350.1.13.10 4.2.7.2.686 [id number] [facility] 2023-06-15 00:00:00 2023-06-15 00:00:00 Letter (Out) Tasia Hong [facility] 1.2.840.114 350.1.13.10 4.2.7.2.686 [id number] [facility] 2023-06-11 11:00:00 2023-06-11 11:33:35 Office Visit Robert Iyer [facility] 1..84.114 350.1.13.10 4.2.7.2.686 [id number] [facility] 2023-06-11 11:00:00 2023-06-11 11:33:35 Outpatient R IYER ROBERT [facility] [id number] [facility] 2023-06-10 11:49:00 2023-06-10 13:26:00 Emergency X NANY ECHAVARRIA [facility] ERT [id number] [facility] 2023-06-10 11:49:00 2023-06-10 13:26:00 Emergency Nany Echavarria [facility] 1.2840.114 350.1.13.10 4.2.7.2.686 [id number] [facility] 2023-06-07 11:33:34 2023-06-07 11:33:34 Outpatient [facility] [id number] Dean Rayo [place] 2023-05-21 15:03:11 2023-05-21 15:03:11 Outpatient [facility] [id number] Dean Rayo [place] 2023-04-22 14:23:55 2023-04-22 14:23:55 Outpatient [facility] [id number] Dean Rayo [place] 2022-10-26 14:20:00 2022-10-26 14:20:00 Outpatient R MAYNOR ROWE [facility] [id number] [facility] 2022-10-03 08:23:00 2022-10-03 10:21:00 Emergency X JENNIFER MACHADO [facility] ERT [id number] [facility] 2022-10-03 08:23:00 2022-10-03 10:21:00 Emergency Jennifer Machado S [facility] 1.2840.114 350.1.13.10 4.2.7.2.686 [id number] [facility] 2022-09-21 00:00:00 2022-09-21 00:00:00 Patient Secure Msg Doctor Unassigned, [place] [facility] 1.2840.114 350.1.13.10 4.2.7.2.686 [id number] [facility] 2022-09-19 16:43:14 2022-09-19 16:43:14 Outpatient [facility] [id number] Dean Rayo [place] 2022-09-19 00:00:00 2022-09-19 00:00:00 Orders Only Doctor Unassigned, [place] [facility] 1.2840.114 350.1.13.10 4.2.7.2.686 [id number] [facility] 2022-09-18 10:00:00 2022-09-18 10:00:00 Outpatient R UNKNOWN, ATTENDING [facility] [id number] [facility] 2022-09-18 00:00:00 2022-09-18 00:00:00 Outpatient Visit [id number] 2022-05-31 07:23:00 2022-05-31 07:58:00 Emergency ER MARTIN BRADY [facility] [id number] [facility] 2021-05-26 00:00:00 2021-05-26 00:00:00 Telephone [facility] [id number] [facility] 2021-05-24 11:09:58 2021-05-24 11:29:58 Laboratory Only Only, Ang Db Test [facility] [id number] [facility] 2021-05-24 11:20:00 2021-05-24 11:20:00 Outpatient [facility] [id number] [facility] 2021-05-24 11:20:00 2021-05-24 11:20:00 Outpatient R EDDA MARESTANY [facility] [id number] [facility] Results Test Description Test Time Test Comments Results Result Co mments Source COMPREHENSIVE METABOLIC [id number] 06:01:51* Test Item Value Reference Range Interpretation Comme nts GLUCOSE (test code = 2217) 98 MG/DL 70-99 BUN (test code = 2208) 17 MG/DL 6-20 CREATININE (test code = 2214) 1.10 MG/DL 0.80-1.40 eGFR (2020 CKD-EPI) (test code = 51197) 85 ML/MIN/1.73 >60 CALC BUN/CREAT (test code = 2234) 15 RATIO 6-28 SODIUM (test code = 2230) 138 MEQ/L 133-146 POTASSIUM (test code = 2227) 4.3 MEQ/L 3.5-5.4 CHLORIDE (test code = 2214) 102 MEQ/L 95-107 CARBON DIOXIDE (test code = 2205) 20 MEQ/L 19-31 CALCIUM (test code = 2208) 9.2 MG/DL 8.5-10.5 PROTEIN, TOTAL (test code = 2228) 6.7 G/DL 6.1-8.3 ALBUMIN (test code = 2200) 4.7 G/DL 3.5-5.2 CALC GLOBULIN (test code = 2239) 2.0 G/DL 1.9-3.7 CALC A/G RATIO (test code = 2233) 2.4 RATIO 1.0-2.6 BILIRUBIN, TOTAL (test code = 2206) 0.2 MG/DL <=1.2 ALKALINE PHOSPHATASE (test code = 2203) 79 U/L 40-119 AST (test code = 2217) 32 U/L 9-50 ALT (test code = 2218) 41 U/L 5-50 UNLESS OTHERWISE INDICATED, ALL TESTING PERFORMED AT [facility] [address] [place] [address] [employer] INST[employer]ER: WILNER HALE M.D. CLIA NUMBER [id number] [facility] [place]. [id number] HEMOGLOBIN [id number] 03:15:12* Test Item Value Reference Range Interpretation Comme nts HEMOGLOBIN A1c (test code = 15227) 5.6 % 4.2-5.6 CBC W/AUTO DIFF WITH [id number] 02:47:07* Test Item Value Reference Range Interpretation Comme nts WBC (test code = 1001) 7.3 K/UL 3.5-11.0 RBC (test code = 1002) 5.08 M/UL 4.50-6.10 HEMOGLOBIN (test code = 1003) 15.4 G/DL 13.5-17.0 HEMATOCRIT (test code = 1004) 46.2 % 40.0-51.0 MCV (test code = 1005) 90.9 fL 80.0-99.0 MCH (test code = 1006) 30.3 PG 25.0-33.0 MCHC (test code = 1007) 33.3 G/DL 31.0-36.0 RDW (test code = 1038) 12.1 % 11.5-15.0 NEUTROPHILS (test code = 1008) 52.4 % LYMPHOCYTES (test code = 1010) 32.2 % MONOCYTES (test code = 1011) 9.3 % EOSINOPHILS (test code = 1012) 4.9 % BASOPHILS (test code = 1013) 0.7 % IMMATURE GRANULOCYTES (test code = 1036) 0.5 % NUCLEATED RBCS (test code = 1065) 0.0 /100 WBC'S See_Comment [Automated [employer] ge] The system which generated this result transmitted reference range: 0.0. The reference range was not used to interpret this result as normal/abnormal. PLATELET COUNT (test code = 1015) 217 K/UL 130-400 ABSOLUTE NEUTROPHILS (test code = 1066) 3.84 K/UL 1.50-7.50 ABSOLUTE LYMPHOCYTES (test code = 1067) 2.36 K/UL 1.00-4.00 ABSOLUTE MONOCYTES (test code = 1068) 0.68 K/UL 0.20-1.00 ABSOLUTE EOSINOPHILS (test code = 1040) 0.36 K/UL 0.00-0.50 ABSOLUTE BASOPHILS (test code = 1069) 0.05 K/UL 0.00-0.20 ABS IMMATURE GRANULOCYTES (test code = 1020) 0.04 K/UL 0.00-0.10 ABS NUCLEATED RBCS (test code = 86424) 0.00 K/UL 0.00-0.11 COMP. METABOLIC PANEL (98213)2022-10-03 15:32:46* Test Item Value Reference Range Interpretation Comme nts NA (test code = 6325955192) 137 mmol/L 135-145 K (test code = 6647290283) 4.5 mmol/L 3.5-5.0 CL (test code = 5609293140) 101 mmol/L 98-108 CO2 TOTAL (test code = 1631485479) 27 mmol/L 23-31 AGAP (test code = 2700674587) 2-16 BUN (test code = 8830050586) 18 mg/dL 7-23 GLUCOSE (test code = 6892271999) 88 mg/dL 70-110 CREATININE (test code = 3368448528) 0.97 mg/dL 0.60-1.25 TOTAL BILI (test code = 6248299504) 0.8 mg/dL 0.1-1.1 CALCIUM (test code = 2198927897) 9.2 mg/dL 8.6-10.6 T PROTEIN (test code = 2354131062) 7.7 g/dL 6.3-8.2 ALBUMIN (test code = 2856948452) 4.9 g/dL 3.5-5.0 ALK PHOS (test code = 0289063951) 89 U/L 34-122 ALTv (test code = 1742-6) 30 U/L 5-50 AST(SGOT) (test code = 2613080279) 32 U/L 13-40 eGFR (test code = 2008655343) mL/min/1.73m2 LAVELL (test code = LAVELL) Association of Glomerular Filtration Rate (GFR) and Staging of Kidney Disease* + + +- +| GFR (mL/min/1.73 m2) ?| With Kidney Damage ?| ?Without Kidney Damage+ ------+ ----+ ------+| ?>90 ?| ?Stage one ?| ? Normal ?+ -+ + -+| ?60-89 ?| ?Stage two ?| ? Decreased GFR ? + + +- +| ?30-59 ?| ?Stage three ?| ? Stage three ? + + +- +| ?15-29 ?| ?Stage four ? | ? Stage four ?+ -+ + -+| ?<15 (or dialysis) ? ?| ?Stage five ? | ? Stage five ?+ -+ + -+ *Each stage assumes the associated GFR level has been in effect for at least three months. ?Stages 1 to 5, with or without kidney disease, indicate chronic kidney disease. Notes: Determination of stages one and two (with eGFR >59mL/min/1.73 m2) requires estimation of kidney damage for at least three months as defined by structural or functional abnormalities of the kidney, manifested by either:Pathological abnormalities or Markers of kidney damage (including abnormalities in the composition of the blood or urine or abnormalities in imaging tests). [facility] WITH [id number] 15:11:46* Test Item Value Reference Range Interpretation Comme nts WBC (test code = 6690-2) See_Comment H [Automated messa ge] The system which generated this result transmitted reference range: 4.20 - 10.70 10*3/?L. The reference range was not used to interpret this result as normal/abnormal. RBC (test code = 789-8) See_Comment [Automated messa ge] The system which generated this result transmitted reference range: 4.26 - 5.52 10*6/?L. The reference range was not used to interpret this result as normal/abnormal. HGB (test code = 718-7) 17.1 g/dL 12.2-16.4 H HCT (test code = 4544-3) 51.4 % 38.4-49.3 H MCV (test code = 787-2) 93.8 fL 81.7-95.6 MCH (test code = 785-6) 31.2 pg 26.1-32.7 MCHC (test code = 786-4) 33.3 g/dL 31.2-35.0 RDW-SD (test code = 88809-7) 43.5 fL 38.5-51.6 RDW-CV (test code = 788-0) 12.5 % 12.1-15.4 PLT (test code = 777-3) See_Comment [Automated messa ge] The system which generated this result transmitted reference range: 150 - 328 10*3/?L. The reference range was not used to interpret this result as normal/abnormal. MPV (test code = 12222-5) 9.7 fL 9.8-13.0 L NRBC/100 WBC (test code = 1152805425) See_Comment [Automated [employer] ssage] The system which generated this result transmitted reference range: 0.0 - 10.0 /100 WBCs. The reference range was not used to interpret this result as normal/abnormal. NRBC x10^3 (test code = 9457655017) See_Comment [Automated messa ge] The system which generated this result transmitted reference range: 10*3/?L. The reference range was not used to interpret this result as normal/abnormal. GRAN MAT (NEUT) % (test code = 770-8) 61.7 % IMM GRAN % (test code = 1715918212) 0.40 % LYMPH % (test code = 736-9) 26.4 % MONO % (test code = 5905-5) 7.8 % EOS % (test code = 713-8) 3.2 % BASO % (test code = 706-2) 0.5 % GRAN MAT x10^3(ANC) (test code = 6808650227) 8.23 10*3/uL 1.99-6.95 H IMM GRAN x10^3 (test code = 3751044252) 0.05 10*3/uL 0.00-0.06 LYMPH x10^3 (test code = 731-0) 3.52 10*3/uL 1.09-3.23 H MONO x10^3 (test code = 742-7) 1.04 10*3/uL 0.36-1.02 H EOS x10^3 (test code = 711-2) 0.43 10*3/uL 0.06-0.53 BASO x10^3 (test code = 704-7) 0.06 10*3/uL 0.01-0.09 Lab Interpretation (test code = 07902-0) [id number] Test Item Value Reference Range Interpretation Comme nts TSH, THIRD GENERATION (test code = 2821) 2.200 UIU/ML CBC W/AUTO [id number] 00:00:00* Test Item Value Reference Range Interpretation Comme nts WBC (test code = 1001) 6.6 K/UL RBC (test code = 1002) 4.89 M/UL HEMOGLOBIN (test code = 1003) 15.8 G/DL HEMATOCRIT (test code = 1004) 44.3 % MCV (test code = 1005) 90.6 fL MCH (test code = 1006) 32.3 PG MCHC (test code = 1007) 35.7 G/DL RDW (test code = 1038) 12.8 % NEUTROPHILS (test code = 1008) 48.8 % LYMPHOCYTES (test code = 1010) 31.8 % MONOCYTES (test code = 1011) 12.6 % EOSINOPHILS (test code = 1012) 5.5 % BASOPHILS (test code = 1013) 0.8 % IMMATURE GRANULOCYTES (test code = 1036) 0.5 % NUCLEATED RBCS (test code = 1065) 0.0 /100WBC'S PLATELET COUNT (test code = 1015) 199 K/UL ABSOLUTE NEUTROPHILS (test c ode = 1066) 3.22 K/UL ABSOLUTE LYMPHOCYTES (test c ode = 1067) 2.09 K/UL ABSOLUTE MONOCYTES (test cod e = 1068) 0.83 K/UL ABSOLUTE EOSINOPHILS (test c ode = 1040) 0.36 K/UL ABSOLUTE BASOPHILS (test cod e = 1069) 0.05 K/UL ABS IMMATURE GRANULOCYTES (t est code = 1020) 0.03 K/UL ABS NUCLEATED RBCS (test cod e = 05368) 0.00 K/UL LIPID [id number] 00:00:00* Test Item Value Reference Range Interpretation Comme nts CHOLESTEROL (test code = 2210) 234 MG/DL TRIGLYCERIDES (test code = 2232) 274 MG/DL HDL CHOLESTEROL (test code = 2220) 44 MG/DL CALC LDL CHOL (test code = 2237) 145 MG/DL RISK RATIO LDL/HDL (test cod e = 2238) 3.30 RATIO COMPREHENSIVE METABOLIC [id number] 00:00:00* Test Item Value Reference Range Interpretation Comme nts GLUCOSE (test code = 2217) 94 MG/DL BUN (test code = 2208) 14 MG/DL CREATININE (test code = 2214) 1.27 MG/DL eGFR AMER. (test cod e = 45950) 81 ML/MIN/1.73 eGFR NON- AMER. (test code = 12748) 70 ML/MIN/1.73 CALC BUN/CREAT (test code = 2235) 11 RATIO SODIUM (test code = 2231) 138 MEQ/L POTASSIUM (test code = 2228) 4.4 MEQ/L CHLORIDE (test code = 2215) 102 MEQ/L CARBON DIOXIDE (test code = 2206) 23 MEQ/L CALCIUM (test code = 2209) 9.3 MG/DL PROTEIN, TOTAL (test code = 2229) 6.8 G/DL ALBUMIN (test code = 2201) 4.3 G/DL CALC GLOBULIN (test code = 2240) 2.5 G/DL CALC A/G RATIO (test code = 2234) 1.7 RATIO BILIRUBIN, TOTAL (test code = 2207) 0.4 MG/DL ALKALINE PHOSPHATASE (test code = 2204) 88 U/L AST (test code = 2218) 37 U/L ALT (test code = 2219) 71 U/L [id number] 00:00:00* Test Item Value Reference Range Interpretation Comme nts TSH, THIRD GENERATION (test code = 2821) 1.190 UIU/ML CBC W/AUTO [id number] 00:00:00* Test Item Value Reference Range Interpretation Comme nts WBC (test code = 1001) 8.3 K/UL RBC (test code = 1002) 5.36 M/UL HEMOGLOBIN (test code = 1003) 16.5 G/DL HEMATOCRIT (test code = 1004) 47.7 % MCV (test code = 1005) 89.0 fL MCH (test code = 1006) 30.8 PG MCHC (test code = 1007) 34.6 G/DL RDW (test code = 1038) 12.6 % NEUTROPHILS (test code = 1008) 54.1 % LYMPHOCYTES (test code = 1010) 33.9 % MONOCYTES (test code = 1011) 7.1 % EOSINOPHILS (test code = 1012) 3.8 % BASOPHILS (test code = 1013) 0.6 % IMMATURE GRANULOCYTES (test code = 1036) 0.5 % NUCLEATED RBCS (test code = 1065) 0.0 /100WBC'S PLATELET COUNT (test code = 1015) 214 K/UL ABSOLUTE NEUTROPHILS (test c ode = 1066) 4.51 K/UL ABSOLUTE LYMPHOCYTES (test c ode = 1067) 2.83 K/UL ABSOLUTE MONOCYTES (test cod e = 1068) 0.59 K/UL ABSOLUTE EOSINOPHILS (test c ode = 1040) 0.32 K/UL ABSOLUTE BASOPHILS (test cod e = 1069) 0.05 K/UL ABS IMMATURE GRANULOCYTES (t est code = 1020) 0.04 K/UL ABS NUCLEATED RBCS (test cod e = 62540) 0.00 K/UL HEMOGLOBIN [id number] 00:00:00* Test Item Value Reference Range Interpretation Comme nts HEMOGLOBIN A1c (test code = 73656) 5.7 % COMPREHENSIVE METABOLIC [id number] 00:00:00* Test Item Value Reference Range Interpretation Comme nts GLUCOSE (test code = 2217) 86 MG/DL BUN (test code = 2208) 19 MG/DL CREATININE (test code = 2214) 1.12 MG/DL eGFR AMER. (test cod e = 19026) 95 ML/MIN/1.73 eGFR NON- AMER. (test code = 24052) 82 ML/MIN/1.73 CALC BUN/CREAT (test code = 2235) 17 RATIO SODIUM (test code = 2231) 139 MEQ/L POTASSIUM (test code = 2228) 4.4 MEQ/L CHLORIDE (test code = 2215) 105 MEQ/L CARBON DIOXIDE (test code = 2206) 26 MEQ/L CALCIUM (test code = 2209) 9.5 MG/DL PROTEIN, TOTAL (test code = 2229) 6.8 G/DL ALBUMIN (test code = 2201) 4.6 G/DL CALC GLOBULIN (test code = 2240) 2.2 G/DL CALC A/G RATIO (test code = 2234) 2.1 RATIO BILIRUBIN, TOTAL (test code = 2207) 0.3 MG/DL ALKALINE PHOSPHATASE (test code = 2204) 106 U/L AST (test code = 2218) 29 U/L ALT (test code = 2219) 41 U/L LIPID [id number] 00:00:00* Test Item Value Reference Range Interpretation Comme nts CHOLESTEROL (test code = 2210) 173 MG/DL TRIGLYCERIDES (test code = 2232) 206 MG/DL HDL CHOLESTEROL (test code = 2220) 44 MG/DL CALC LDL CHOL (test code = 2237) 99 MG/DL RISK RATIO LDL/HDL (test cod e = 2238) 2.25 RATIO LIPID [id number] 00:00:00* Test Item Value Reference Range Interpretation Comme nts CHOLESTEROL (test code = 2210) 323 MG/DL TRIGLYCERIDES (test code = 2232) 270 MG/DL HDL CHOLESTEROL (test code = 2220) 58 MG/DL CALC LDL CHOL (test code = 2237) 211 MG/DL RISK RATIO LDL/HDL (test cod e = 2238) 3.64 RATIO HEMOGLOBIN [id number] 00:00:00* Test Item Value Reference Range Interpretation Comme nts HEMOGLOBIN A1c (test code = 43029) 5.8 % COMPREHENSIVE METABOLIC [id number] 00:00:00* Test Item Value Reference Range Interpretation Comme nts GLUCOSE (test code = 2217) 83 MG/DL BUN (test code = 2208) 16 MG/DL CREATININE (test code = 2214) 1.03 MG/DL eGFR AMER. (test cod e = 66904) 105 ML/MIN/1.73 eGFR NON- AMER. (test code = 36447) 90 ML/MIN/1.73 CALC BUN/CREAT (test code = 2235) 16 RATIO SODIUM (test code = 2231) 141 MEQ/L POTASSIUM (test code = 2228) 4.7 MEQ/L CHLORIDE (test code = 2215) 101 MEQ/L CARBON DIOXIDE (test code = 2206) 26 MEQ/L CALCIUM (test code = 2209) 9.9 MG/DL PROTEIN, TOTAL (test code = 2229) 7.2 G/DL ALBUMIN (test code = 2201) 4.6 G/DL CALC GLOBULIN (test code = 2240) 2.6 G/DL CALC A/G RATIO (test code = 2234) 1.8 RATIO BILIRUBIN, TOTAL (test code = 2207) 0.3 MG/DL ALKALINE PHOSPHATASE (test code = 2204) 94 U/L AST (test code = 2218) 44 U/L ALT (test code = 2219) 74 U/L [id number] 00:00:00* Test Item Value Reference Range Interpretation Comme nts TSH, THIRD GENERATION (test code = 2821) 2.270 UIU/ML [id number] 00:00:00* Test Item Value Reference Range Interpretation Comme nts RPR RESULT (test code = 3501) NON-REACTIVE RPR TITER (test code = 3500) NOT INDIC. TITER HIV AB/AG COMBO RFLX [id number] 00:00:00* Test Item Value Reference Range Interpretation Comme nts HIV 1/2 4TH GEN, RFLX CONF ( test code = 3514) NON-REACTIVE HEPATITIS PROFILE (A,B,C)2019-11-07 00:00:00* Test Item Value Reference Range Interpretation Comme nts HEPATITIS A TOTAL AB (test c ode = 2725) REACTIVE HEPATITIS B SURF AG (test co de = 2739) NON-REACTIVE HEP B CORE TOTAL AB (test co de = 2729) NON-REACTIVE HEPATITIS B SURFACE AB (test code = 2737) NON-REACTIVE HEPATITIS C ANTIBODY (test c ode = 5376) NON-REACTIVE INTERPRETATION HEPATITIS A: (test code = 2552) (NOTE) INTERPRETATION HEPATITIS B: (test code = 37133) (NOTE) INTERPRETATION HEPATITIS C: (test code = 25388) (NOTE) CHLAMYDIA, AMPLIFIED, [id number] 00:00:00* Test Item Value Reference Range Interpretation Comme nts CHLAMYDIA, TMA (test code = 49091) NEGATIVE GC, AMPLIFIED, [id number] 00:00:00* Test Item Value Reference Range Interpretation Comme nts GONORRHEA, TMA (test code = 35432) NEGATIVE PSA, [id number] 00:00:00* Test Item Value Reference Range Interpretation Comme nts PSA, TOTAL (test code = 2606) 0.54 NG/ML HEPATITIS A IgM [REFLEX]2019-11-07 00:00:00* Test Item Value Reference Range Interpretation Comme nts HEPATITIS A IgM (test code = 2728) NON-REACTIVE CBC W/AUTO [id number] 00:00:00* Test Item Value Reference Range Interpretation Comme nts WBC (test code = 1001) 10.6 K/UL RBC (test code = 1002) 5.24 M/UL HEMOGLOBIN (test code = 1003) 16.3 G/DL HEMATOCRIT (test code = 1004) 46.1 % MCV (test code = 1005) 88.0 fL MCH (test code = 1006) 31.1 PG MCHC (test code = 1007) 35.4 G/DL RDW (test code = 1038) 13.2 % NEUTROPHILS (test code = 1008) 61.4 % LYMPHOCYTES (test code = 1010) 27.5 % MONOCYTES (test code = 1011) 7.5 % EOSINOPHILS (test code = 1012) 3.0 % BASOPHILS (test code = 1013) 0.6 % PLATELET COUNT (test code = 1015) 198 K/UL COMPREHENSIVE METABOLIC [id number] 00:00:00* Test Item Value Reference Range Interpretation Comme nts GLUCOSE (test code = 2217) 92 MG/DL BUN (test code = 2208) 11 MG/DL CREATININE (test code = 2214) 0.90 MG/DL eGFR AMER. (test cod e = 31136) 124 ML/MIN/1.73 eGFR NON- AMER. (test code = 81227) 107 ML/MIN/1.73 CALC BUN/CREAT (test code = 2235) 12 RATIO SODIUM (test code = 2231) 142 MEQ/L POTASSIUM (test code = 2228) 4.8 MEQ/L CHLORIDE (test code = 2215) 104 MEQ/L CARBON DIOXIDE (test code = 2206) 28 MEQ/L CALCIUM (test code = 2209) 9.3 MG/DL PROTEIN, TOTAL (test code = 2229) 6.9 G/DL ALBUMIN (test code = 2201) 4.5 G/DL CALC GLOBULIN (test code = 2240) 2.4 G/DL CALC A/G RATIO (test code = 2234) 1.9 RATIO BILIRUBIN, TOTAL (test code = 2207) 0.4 MG/DL ALKALINE PHOSPHATASE (test code = 2204) 80 U/L AST (test code = 2218) 34 U/L ALT (test code = 2219) 44 U/L CBC W/AUTO [id number] 00:00:00* Test Item Value Reference Range Interpretation Comme nts WBC (test code = 1001) 16.1 K/UL RBC (test code = 1002) 5.15 M/UL HEMOGLOBIN (test code = 1003) 16.0 G/DL HEMATOCRIT (test code = 1004) 45.3 % MCV (test code = 1005) 88.0 fL MCH (test code = 1006) 31.1 PG MCHC (test code = 1007) 35.3 G/DL RDW (test code = 1038) 13.0 % NEUTROPHILS (test code = 1008) 76.0 % LYMPHOCYTES (test code = 1010) 16.5 % MONOCYTES (test code = 1011) 5.8 % EOSINOPHILS (test code = 1012) 1.4 % BASOPHILS (test code = 1013) 0.3 % PLATELET COUNT (test code = 1015) 167 K/UL HEMOGLOBIN [id number] 00:00:00* Test Item Value Reference Range Interpretation Comme nts HEMOGLOBIN A1c (test code = 95242) 5.7 % [id number] 00:00:00* Test Item Value Reference Range Interpretation Comme nts TSH, THIRD GENERATION (test code = 2821) 1.410 UIU/ML CBC W/AUTO [id number] 00:00:00* Test Item Value Reference Range Interpretation Comme nts WBC (test code = 1001) TEST NOT PERFORMED K/UL COMPREHENSIVE METABOLIC [id number] 00:00:00* Test Item Value Reference Range Interpretation Comme nts GLUCOSE (test code = 2217) 92 MG/DL BUN (test code = 2208) 18 MG/DL CREATININE (test code = 2214) 1.51 MG/DL eGFR AMER. (test cod e = 34592) 67 ML/MIN/1.73 eGFR NON- AMER. (test code = 14105) 58 ML/MIN/1.73 CALC BUN/CREAT (test code = 2235) 12 RATIO SODIUM (test code = 2231) 140 MEQ/L POTASSIUM (test code = 2228) 3.7 MEQ/L CHLORIDE (test code = 2215) 101 MEQ/L CARBON DIOXIDE (test code = 2206) 25 MEQ/L CALCIUM (test code = 2209) 9.3 MG/DL PROTEIN, TOTAL (test code = 2229) 6.3 G/DL ALBUMIN (test code = 2201) 4.3 G/DL CALC GLOBULIN (test code = 2240) 2.0 G/DL CALC A/G RATIO (test code = 2234) 2.2 RATIO BILIRUBIN, TOTAL (test code = 2207) 0.4 MG/DL ALKALINE PHOSPHATASE (test code = 2204) 75 U/L AST (test code = 2218) 40 U/L ALT (test code = 2219) 24 U/L THYROID II PROFILE (T3U, T4, T7, TSH)2016-10-31 00:00:00* Test Item Value Reference Range Interpretation Comme nts T3 UPTAKE (test code = 2817) 29.3 % T4 (THYROXINE) (test code = 2819) 6.7 UG/DL CALCULATED T7 (FTI) (test co de = 2820) 1.96 TSH (test code = 2821) 0.7 UIU/ML HEMOGLOBIN [id number] 00:00:00* Test Item Value Reference Range Interpretation Comme nts HEMOGLOBIN A1c (test code = 04683) 5.8 %"
[2024-07-05 13:42] LABS: Absolute Eosinophils 0.3 K/uL (0-0.5); Absolute Lymphocytes (CBC) 2.4 K/uL (0.7-4.9); Absolute Monocytes 0.5 K/uL (0.1-1.3); Absolute Neutrophil 2.8 K/uL (1.8-8.0); Basophils % 0.5 % (0-1.3); Eosinophils % 4.4 % (0-4.4); Hematocrit 48.9 % (39.6-49.0); Hemoglobin 16.2 g/dL (13.6-17.9); Lymphocytes % 40.2 % (15.3-44.8); MCH 30.6 pg (27.0-35.0); MCHC 33.1 g/dL (32.0-36.0); MCV 92.5 fL (80-100); MPV 7.9 fL (7.6-11.3); Monocytes % 7.8 % (3.3-12.3); Neutrophils % 47.1 % (41.7-73.7); Nucleated Red Blood Cells % 0.1 % (0-0); Platelets 175 thou/uL (152-406); RBC Red Blood Cell Count 5.29 M/uL (4.33-5.43); Red Cell Distribution Width 13.9 % (12.1-15.2)
[2024-07-05] MEDS ORDERED: NA CHLORIDE 0.9% 1,000 ML ONE (13:42)
[2024-07-05 13:48] LABS: PT Prothrombin Time 11.6 SECONDS (9.4-12.5); PTT, Activated Partial Thromb 27.9 SECONDS (24.3-36.9); Protime INR 1.04
[2024-07-05 14:02] LABS: ALT/SGPT 34 U/L (16-61); AST/SGOT 24 U/L (15-37); Albumin 2.9 g/dL (3.4-5.0); Albumin/Globulin Ratio 1.2 (1.1-1.8); Alkaline Phosphatase 51 U/L (45-117); Anion Gap 9.6 mEq/L (5.0-15.0); BUN Blood Urea Nitrogen 12 mg/dL (7-18); Bicarbonate 24 mEq/L (21-32); Bilirubin Total 0.5 mg/dL (0.2-1.0); Globulin 2.5 g/dL (2.3-3.5); Glomerular Filtration Rate 93 ml/min (=/>90); Glucose Level 102 mg/dL (74-106); Magnesium 1.9 mg/dL (1.6-2.4); NT PRO-BNP 20 pg/mL (<125); Potassium 3.6 mEq/L (3.5-5.1); Protein, Total 5.4 g/dL (6.4-8.2); Sodium Level 141 mEq/L (136-145); Troponin High Sensitivity 20.5 pg/mL (<58.9)
[2024-07-05 14:03] LABS: Bilirubin Direct < 0.2 mg/dL (0-0.2); Bilirubin Indirect, Calculated 0.3 mg/dL (0.2-0.8)
--- NOTE | 2024-07-05 15:12 | RAD REPORT ---
EXAMINATION: CT HEAD WITHOUT CONTRAST CT CERVICAL SPINE WITHOUT CONTRAST CLINICAL INDICATION: Syncope. Head and neck injury status post fall. Head and neck pain TECHNIQUE: Axial CT images from the skull base to the vertex without intravenous contrast. Axial CT i mages through the cervical spine were obtained without intravenous contrast. Sagittal and coronal reformatted images were created from the data set. Coronal and sagittal reformatted images were creat ed from the data set. One or more of the following dose reduction techniques were used: Automated exposure control, adjustment of the mA and/or kV according to patient size, and/or iterative reconstr uction. Unless otherwise specified, incidental findings do not require dedicated imaging follow-up. [id number]. Comparison: none FINDINGS: Intracranial bleed not noted. Ventricles are normal in caliber. No significant hypodensity within the brain No extra-axial fluid collection. Cerebellar tonsillar ectopia is present. No fluid within the sinuses/mastoids No fracture or dislocation is seen involving the cervical spine. Slight anterior subluxation C2 on C3 and C3 on C4. No significant adjacent soft tissue swelling IMPRESSION: No acute intracranial abnormality noted A cervical fracture is not seen. If the patient continues to have symptoms to suggest acute PRICER/spinal/ligamentous pathology then MRI would be recommended
--- NOTE | 2024-07-05 15:19 | RAD REPORT ---
EXAM: CT CHEST, ABDOMEN AND PELVIS WITHOUT CONTRAST CLINICAL INDICATION: Chest and abdominal pain status post fall TECHNIQUE: CT chest, abdomen and pelvis was performed, without IV contrast, as per department protoco l. Axial, sagittal and coronal reconstructions were obtained. One or more of the following dose reduction techniques were used: Automated exposure control, adjustment of the mA and/or kV according to the patient size, and/or iterative reconstruction. Unless otherwise specified, incidental findings do not require dedicated imaging follow-up. The lack of IV and oral contrast limits evaluation of the mediastinum, usman, vessels, organs and rj l. COMPARISON: None FINDINGS: A pulmonary contusion is not seen. No mediastinal,. No pleural effusion. No pericardial effusion. Liver, spleen, pancreas, adrenals kidneys and bladder appear grossly normal There is no evidence of diverticulitis Normal appendix IMPRESSION: No acute traumatic injury involving the chest, abdomen/pelvis seen
--- NOTE | 2024-07-05 15:19 | RAD REPORT ---
Procedure: Chest Single View HISTORY: Chest pain COMPARISON: none FINDINGS: The lungs appear clear of acute infiltrate. No significant pleural effusion noted. The heart is normal size. IMPRESSION: No acute abnormality is displayed.
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
[2024-07-05 19:16] VITALS: TEMP 98.9
[2024-07-05 19:19] VITALS: BP 132/90; O2SAT 98
--- NOTE | 2024-07-08 13:00 | EKG ---
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
== END 2024-07-05 16:47 | disposition home or self-care (01) ==
LOC: ER 13:09
DX: R55 Syncope and collapse (principal); V49.9XXA Car occupant (driver) (passenger) injured in unspecified traffic accident, initial encounter; Z72.0 Tobacco use
CPT/HCPCS: 96361; 93005; 85025; 80048; 36415; 83735; 85610; 80076; 85730; 84484; 83880; 70450; 71250; 72125; 74176; 71045; 96360; 99284; 80143; 80179; 82077; J7030